=== PATIENT | female | born 1985 | race Caucasian/White ===

== ENCOUNTER 2023-10-09 12:00 | Outpatient (CLI) | payer OTHER ==
--- NOTE | 2023-10-09 19:32 | XRAY Report ---
PROCEDURE: Knee 3 View BILAT INDICATIONS: 3 MONTHS BILATERAL KNEE PAIN TECHNIQUE: 4 views of the knee(s) were acquired. COMPARISON: None. FINDINGS: Bones: No fractures or dislocations. Joint spaces are maintained. Normal alignment on patella sunri se view. No suspicious bony lesions. Soft tissues: Small bilateral knee joint effusions. No suspicious soft tissue calcifications or chantelle s. IMPRESSION: No acute bony abnormality. Reviewed by: Amari Lares MD on 10/09/2023 7:30 PM PST Approved by: Amari Lares MD on 10/09/2023 7:30 PM PST Station ID: [id number]
== END 2023-10-09 12:15 | disposition home or self-care (01) ==
LOC: DI.N 12:00
PROVIDERS: ATTEND Physician Assistant Medical
DX: M25.569 Pain in unspecified knee (principal); M25.561 Pain in right knee; M25.562 Pain in left knee
CPT/HCPCS: 36415; 80053; 83516; 85025; 85651; 86140; 86225; 86235; 86430

== ENCOUNTER 2023-10-09 12:15 | Outpatient (CLI) | payer OTHER ==
[2023-10-09 18:00] LABS: BASOPHILS % (AUTO) 0.6 %; EOSINOPHILS # (AUTO) 0.1 10^3/uL (0.0-0.7); EOSINOPHILS % (AUTO) 2.1 %; HCT - HEMATOCRIT 44.3 % (37.0-47.0); HGB - HEMOGLOBIN 14.4 g/dL (12.0-16.0); LYMPHOCYTES # (AUTO) 1.6 10^3/uL (1.5-3.5); LYMPHOCYTES % (AUTO) 31.4 %; MEAN CORPUSCULAR HEMOGLOBIN 31.2 pg (27.0-31.0); MEAN CORPUSCULAR HGB CONC 32.5 g/dL (32.0-36.0); MEAN CORPUSCULAR VOLUME 95.9 fL (81.0-99.0); MEAN PLATELET VOLUME 10.5 fL (7.9-10.8); MONOCYTES # (AUTO) 0.4 10^3/uL (0.0-1.0); MONOCYTES % (AUTO) 6.8 %; NEUTROPHILS % (AUTO) 58.9 %; PLT - PLATELET COUNT 270 10^3/uL (130-450); RED BLOOD COUNT 4.62 10^6/uL (4.20-5.40); RED CELL DISTRIBUTION WIDTH 12.2 % (12.0-15.0); WHITE BLOOD COUNT 5.1 x10^3/uL (4.8-10.8)
[2023-10-09 18:12] LABS: ALBUMIN 4.9 g/dL (3.2-5.5); ALKALINE PHOSPHATASE 39 IU/L (42-121); ALT ALANINE AMINOTRANSFERASE 20 IU/L (10-60); AST ASPARTATE AMINOTRANSFERASE 19 IU/L (10-42); BILIRUBIN,TOTAL 0.5 mg/dL (0.2-1.0); BUN - BLOOD UREA NITROGEN 13 mg/dL (6-20); CALCIUM 9.9 mg/dL (8.5-10.3); CARBON DIOXIDE - CO2 26 mmol/L (21-32); CHLORIDE 105 mmol/L (101-111); CREATININE 0.8 mg/dL (0.6-1.3); CRP - C-REACTIVE PROTEIN < 0.5 mg/dL (<0.5); GFR - MDRD 80 (>89); GLUCOSE 85 mg/dL (74-104); POTASSIUM 3.9 mmol/L (3.5-4.5); SODIUM 137 mmol/L (135-145); TOTAL PROTEIN 7.3 g/dL (6.4-8.9)
[2023-10-09 18:21] LABS: RHEUMATOID FACTOR NEGATIVE (Negative)
[2023-10-10 19:07] LABS: ANTI-DNA (DS) AB QN 1 IU/mL (0-9); CENTROMERE B ANTIBODIES <0.2 AI (0.0-0.9); CHROMATIN ANTIBODIES <0.2 AI (0.0-0.9); JO-1 AB <0.2 AI (0.0-0.9); RIBOSOMAL P ANTIBODIES <0.2 AI (0.0-0.9); RNP ANTIBODIES <0.2 AI (0.0-0.9); SCLERODERMA-70 ANTIBODIES <0.2 AI (0.0-0.9); SJOGREN'S ANTI-SS-A <0.2 AI (0.0-0.9); SJOGREN'S ANTI-SS-B <0.2 AI (0.0-0.9); SMITH ANTIBODIES <0.2 AI (0.0-0.9); SMITH/RNP ANTIBODIES <0.2 AI (0.0-0.9)
== END 2023-10-09 12:30 | disposition home or self-care (01) ==
LOC: LAB.N 12:15
PROVIDERS: ATTEND Physician Assistant Medical
DX: M25.561 Pain in right knee (principal); M25.562 Pain in left knee
CPT/HCPCS: 36415; 80053; 83516; 85025; 85651; 86140; 86225; 86235; 86430

== ENCOUNTER 2023-11-17 08:00 | Outpatient (CLI) | payer OTHER ==
--- NOTE | 2023-11-17 14:54 | XRAY Report ---
PROCEDURE: Knee 1 View BILAT INDICATIONS: BILAT KNEE PAIN, PA TUNNEL VIEW STANDING TECHNIQUE: 1 views of the knee(s) were acquired. COMPARISON: X-ray knee 10/09/2023 FINDINGS: Bones: No fractures or dislocations. No suspicious bony lesions. Soft tissues: No knee joint effusion. No suspicious soft tissue calcifications or masses. IMPRESSION: No visualized acute fracture or dislocation. However, occult injury cannot be excluded. Recommend carlito rt interval imaging follow-up in 7-10 days as clinically indicated for additional evaluation. Reviewed by: Jessica Lang MD on 11/17/2023 2:53 PM PST Approved by: Jessica Lang MD on 11/17/2023 2:53 PM PST Station ID: [id number]
== END 2023-11-17 23:59 | disposition home or self-care (01) ==
LOC: DI.WOS 08:00
PROVIDERS: ATTEND Physician Assistant Surgical
DX: M25.562 Pain in left knee (principal); M25.561 Pain in right knee